=== PATIENT | female | born 1985 | race African-American/Black ===

== ENCOUNTER 2017-06-02 14:13 | Emergency (ER) | payer OTHER ==
[~2017-06-02] VITALS: Ht 157.5 cm; Wt 64.9 kg
[2017-06-02] MEDS ORDERED: KETOROLAC10 MG OR (15:30)
[2017-06-02] MEDS ORDERED: CEPH500C20 PO (15:31)
[2017-06-02 16:07] LABS: PLATELET COUNT 323 K/uL (152-353)
[2017-06-02 16:17] LABS: POTASSIUM 3.9 mmol/L (3.6-5.2); SODIUM 136 mmol/L (136-145)
== END 2017-06-02 18:48 | disposition home or self-care (01) ==
LOC: ED 14:13
PROVIDERS: Family Medicine
DX: D25.9 Leiomyoma of uterus, unspecified (principal); O34.11 Maternal care for benign tumor of corpus uteri, first trimester; Z3A.01 Less than 8 weeks gestation of pregnancy
CPT/HCPCS: 36415; 80053; 81000; 84702; 85027; 99283